=== PATIENT | female | born 1935 | race Caucasian/White ===

== ENCOUNTER 2018-04-16 21:21 | Inpatient (IN) ==
[2018-04-16 22:01] LABS: Basophils % 0.2 % (0.0-0.8); Eosinophils % 0.2 % (0.00-10.9); Hematocrit 37.5 VOL% (35.7-47.0); Hemoglobin 12.3 GM/DL (12.0-16.0); Immature Granulocytes % 0.5 %; Immature Granulocytes Absolute 0.06 #; Lymphocytes # 0.9 10*3/uL (1.4-4.0); Lymphocytes % 7.3 % (21.3-54.2); Mean Corpuscular HGB Conc 32.8 GM/DL (32-36); Mean Corpuscular Hemoglobin 30 PG (27-34); Mean Corpuscular Volume 89.9 FL (87-102); Mean Platelet Volume 9.6 FL (9.6-12.0); Monocytes # 1.1 10*3/uL (0.11-0.8); Monocytes % 8.5 % (1.7-12.7); Neutrophils # 10.7 10*3/uL (1.4-7.4); Neutrophils % 83.3 % (38.7-73.9); Platelet Count 305 T/CUMM (130-400); Red Blood Count 4.17 MC/CUMM (3.8-5.5); Red Cell Distribution Width 12.9 % (9.3-17.3); White Blood Count 12.9 T/CUMM (4-12)
[2018-04-16 22:09] LABS: PT Patient Result 10.4 SECS; Partial Thromboplastin Time 28.7 SECS (0-40)
[2018-04-16 22:23] LABS: Albumin 3.9 G/DL (3.4-5.0); Bilirubin,Total 0.4 MG/DL (0.2-1.0); Calcium 9.3 MG/DL (8.5-10.1); Osmolality,Calculated 274.1 MOS/KG (273-304)
[2018-04-17] MEDS ORDERED: ONDANSETRON 4 MG/2 ML VIAL IV PRN (02:58)
[2018-04-17 04:30] LABS: Apearance,Urine CLEAR (Clear); Bilirubin,Urine Negative (Negative); Blood, Urine Negative (Negative); Glucose,Urine (UA) Negative (Negative); Ketones,Urine Negative (Negative); Nitrite,Urine Negative (Negative); Protein,Urine Negative; RBC,Urine 1 /HPF (0-4); Urine Color Straw (Yellow); Urine Urobilinogen < 2.0 EU/DL (0.2-1.0); WBC,Urine 1 /HPF (0-6)
[2018-04-17] MEDS: LEVOTHYROXINE 25 MCG TABLET PO SCH (05:07)
[2018-04-17 05:58] LABS: Basophils % 0.2 % (0.0-0.8); Eosinophils % 0.1 % (0.00-10.9); Hematocrit 34.2 VOL% (35.7-47.0); Hemoglobin 11.4 GM/DL (12.0-16.0); Immature Granulocytes % 0.3 %; Immature Granulocytes Absolute 0.03 #; Lymphocytes % 8.1 % (21.3-54.2); Mean Corpuscular HGB Conc 33.3 GM/DL (32-36); Mean Corpuscular Hemoglobin 30 PG (27-34); Mean Corpuscular Volume 88.8 FL (87-102); Mean Platelet Volume 9.7 FL (9.6-12.0); Monocytes % 8.9 % (1.7-12.7); Neutrophils # 9.6 10*3/uL (1.4-7.4); Neutrophils % 82.4 % (38.7-73.9); Platelet Count 284 T/CUMM (130-400); Red Blood Count 3.85 MC/CUMM (3.8-5.5); Red Cell Distribution Width 12.9 % (9.3-17.3); White Blood Count 11.7 T/CUMM (4-12)
[2018-04-17 06:40] LABS: Calcium 9.1 MG/DL (8.5-10.1); Potassium 3.7 MMOL/L (3.5-5.1); Thyroid Stimulating Hormone 5.92 uIU/ml (0.358-3.74)
[2018-04-17] MEDS ORDERED: ceFAZolin 1,000 MG in SYRINGE 1 EACH IV ONE (07:28)
[2018-04-17] MEDS: BENAZEPRIL 10 MG TABLET PO SCH (08:26)
[2018-04-17] MEDS: MULTIVITAMIN (CENTRUM) TABLET PO SCH (09:19)
[2018-04-17] MEDS: FERROUS SULFATE 325 MG TABLET PO SCH ×3 (09:19→17:18)
[2018-04-17] MEDS: FUROSEMIDE 20 MG TABLET PO SCH ×2 (09:19→21:02)
[2018-04-17] MEDS: GABAPENTIN 100 MG CAPSULE PO SCH ×3 (09:19→21:02)
[2018-04-17] MEDS ORDERED: BACITRACIN OINT 0.9 GM PACK TOP ONE (10:34)
[2018-04-17] MEDS ORDERED: ROPIVACAINE 0.5% 30 ML VIAL ONE (10:40)
[2018-04-17] MEDS ORDERED: BUPIVACAINE SPINAL 0.75% 2 ML AMP SPINAL ONE (10:43)
[2018-04-17] MEDS ORDERED: fentaNYL 100 MCG/2 ML VIAL ONE (10:43)
[2018-04-17] MEDS ORDERED: MIDAZOLAM 2 MG/2 ML VIAL ONE (10:44)
[2018-04-17] MEDS ORDERED: ETOMIDATE 40 MG/20 ML VIAL IV ONE (10:44)
[2018-04-17] MEDS ORDERED: MAGNESIUM HYDROXIDE SUSP 30 ML UDCUP PO PRN (11:17)
[2018-04-17] MEDS ORDERED: oxyCODONE IR 5 MG TABLET PO PRN (11:17)
[2018-04-17] MEDS ORDERED: PHENYLEPHRINE 1 MG/10 ML SYRINGE IV ONE (12:13)
[2018-04-17] MEDS: clonazePAM 0.5 MG TABLET PO SCH ×2 (13:57→21:02)
[2018-04-17] MEDS: MEMANTINE 5 MG TABLET PO SCH (13:57)
[2018-04-17] MEDS: LACTATED RINGERS 1,000 ML IV SCH ×2 (14:30→14:33)
[2018-04-17] MEDS: ACETAMINOPHEN 500 MG TABLET PO SCH ×2 (17:44→21:03)
[2018-04-17] MEDS: DONEPEZIL 10 MG TABLET PO SCH (21:02)
[2018-04-17] MEDS: FONDAPARINUX 2.5 MG/0.5 ML SYRINGE SUBCUT SCH (21:02)
[2018-04-17] MEDS: AMITRIPTYLINE 25 MG TABLET PO SCH (21:02)
[2018-04-17] MEDS: DOCUSATE SODIUM 100 MG CAPSULE PO SCH (21:02)
[2018-04-17] MEDS: PRAVASTATIN 20 MG TABLET PO SCH (21:02)
[2018-04-17] MEDS: SERTRALINE 50 MG TABLET PO SCH (21:03)
[2018-04-18] MEDS: MORPHINE 4 MG/1 ML VIAL IV PRN ×2 (01:41→23:37)
[2018-04-18] MEDS: LACTATED RINGERS 1,000 ML IV SCH ×2 (01:47→14:20)
[2018-04-18] MEDS: LEVOTHYROXINE 25 MCG TABLET PO SCH (05:09)
[2018-04-18] MEDS: ACETAMINOPHEN 500 MG TABLET PO SCH ×2 (05:09→12:29)
[2018-04-18 06:27] LABS: Basophils % 0.2 % (0.0-0.8); Eosinophils % 0.4 % (0.00-10.9); Hematocrit 31.1 VOL% (35.7-47.0); Hemoglobin 10.6 GM/DL (12.0-16.0); Immature Granulocytes % 0.4 %; Immature Granulocytes Absolute 0.04 #; Lymphocytes # 0.8 10*3/uL (1.4-4.0); Lymphocytes % 7.2 % (21.3-54.2); Mean Corpuscular HGB Conc 34.1 GM/DL (32-36); Mean Corpuscular Hemoglobin 30 PG (27-34); Mean Corpuscular Volume 88.4 FL (87-102); Mean Platelet Volume 9.6 FL (9.6-12.0); Monocytes # 1.2 10*3/uL (0.11-0.8); Monocytes % 11.2 % (1.7-12.7); Neutrophils # 8.5 10*3/uL (1.4-7.4); Neutrophils % 80.6 % (38.7-73.9); Platelet Count 241 T/CUMM (130-400); Red Blood Count 3.52 MC/CUMM (3.8-5.5); Red Cell Distribution Width 13.4 % (9.3-17.3); White Blood Count 10.6 T/CUMM (4-12)
[2018-04-18 06:44] LABS: Calcium 8.1 MG/DL (8.5-10.1); Osmolality,Calculated 279.4 MOS/KG (273-304); Potassium 3.6 MMOL/L (3.5-5.1)
[2018-04-18] MEDS: GABAPENTIN 100 MG CAPSULE PO SCH ×3 (08:47→21:48)
[2018-04-18] MEDS: BENAZEPRIL 10 MG TABLET PO SCH (08:47)
[2018-04-18] MEDS: FERROUS SULFATE 325 MG TABLET PO SCH ×3 (08:47→18:38)
[2018-04-18] MEDS: MULTIVITAMIN (CENTRUM) TABLET PO SCH (08:47)
[2018-04-18] MEDS ORDERED: ACETAMINOPHEN 325 MG TABLET PO PRN (11:18)
[2018-04-18] MEDS ORDERED: ACETAMINOPHEN 500 MG TABLET PO SCH (12:00)
[2018-04-18] MEDS: clonazePAM 0.5 MG TABLET PO SCH ×2 (12:30→21:47)
[2018-04-18] MEDS: MEMANTINE 5 MG TABLET PO SCH (12:30)
[2018-04-18] MEDS: DOCUSATE SODIUM 100 MG CAPSULE PO SCH (21:47)
[2018-04-18] MEDS: PRAVASTATIN 20 MG TABLET PO SCH (21:48)
[2018-04-18] MEDS: SERTRALINE 50 MG TABLET PO SCH (21:48)
[2018-04-18] MEDS: FONDAPARINUX 2.5 MG/0.5 ML SYRINGE SUBCUT SCH (21:48)
[2018-04-18] MEDS: DONEPEZIL 10 MG TABLET PO SCH (21:48)
[2018-04-18] MEDS: AMITRIPTYLINE 25 MG TABLET PO SCH (21:48)
[2018-04-19] MEDS: LACTATED RINGERS 1,000 ML IV SCH (05:32)
[2018-04-19] MEDS: LEVOTHYROXINE 25 MCG TABLET PO SCH (05:33)
[2018-04-19 06:20] LABS: Basophils % 0.2 % (0.0-0.8); Eosinophils # 0.2 10*3/uL (0.0-0.87); Eosinophils % 1.6 % (0.00-10.9); Hemoglobin 9.7 GM/DL (12.0-16.0); Immature Granulocytes % 0.2 %; Immature Granulocytes Absolute 0.02 #; Lymphocytes # 1.6 10*3/uL (1.4-4.0); Lymphocytes % 17.3 % (21.3-54.2); Mean Corpuscular HGB Conc 32.3 GM/DL (32-36); Mean Corpuscular Hemoglobin 30 PG (27-34); Mean Corpuscular Volume 91.7 FL (87-102); Mean Platelet Volume 10.1 FL (9.6-12.0); Monocytes # 1.1 10*3/uL (0.11-0.8); Monocytes % 11.9 % (1.7-12.7); Neutrophils # 6.3 10*3/uL (1.4-7.4); Neutrophils % 68.8 % (38.7-73.9); Platelet Count 239 T/CUMM (130-400); Red Blood Count 3.27 MC/CUMM (3.8-5.5); Red Cell Distribution Width 13.1 % (9.3-17.3); White Blood Count 9.2 T/CUMM (4-12)
[2018-04-19] MEDS: GABAPENTIN 100 MG CAPSULE PO SCH ×3 (09:27→21:22)
[2018-04-19] MEDS: FUROSEMIDE 20 MG TABLET PO SCH ×2 (09:27→21:22)
[2018-04-19] MEDS: BENAZEPRIL 10 MG TABLET PO SCH (09:27)
[2018-04-19] MEDS: MULTIVITAMIN (CENTRUM) TABLET PO SCH (09:37)
[2018-04-19] MEDS: FERROUS SULFATE 325 MG TABLET PO SCH ×3 (09:38→17:30)
[2018-04-19] MEDS: clonazePAM 0.5 MG TABLET PO SCH ×2 (12:08→21:22)
[2018-04-19] MEDS: MEMANTINE 5 MG TABLET PO SCH (12:08)
[2018-04-19] MEDS: FONDAPARINUX 2.5 MG/0.5 ML SYRINGE SUBCUT SCH (21:22)
[2018-04-19] MEDS: DONEPEZIL 10 MG TABLET PO SCH (21:22)
[2018-04-19] MEDS: AMITRIPTYLINE 25 MG TABLET PO SCH (21:23)
[2018-04-19] MEDS: SERTRALINE 50 MG TABLET PO SCH (21:23)
[2018-04-19] MEDS: PRAVASTATIN 20 MG TABLET PO SCH (21:23)
[2018-04-19] MEDS: DOCUSATE SODIUM 100 MG CAPSULE PO SCH (21:32)
[2018-04-19] MEDS: MORPHINE 4 MG/1 ML VIAL IV PRN (21:39)
[2018-04-20] MEDS: LEVOTHYROXINE 25 MCG TABLET PO SCH (07:18)
[2018-04-20] MEDS: FERROUS SULFATE 325 MG TABLET PO SCH ×3 (10:36→19:00)
[2018-04-20] MEDS: BENAZEPRIL 10 MG TABLET PO SCH (10:36)
[2018-04-20] MEDS: MULTIVITAMIN (CENTRUM) TABLET PO SCH (10:36)
[2018-04-20] MEDS: GABAPENTIN 100 MG CAPSULE PO SCH ×3 (10:37→20:55)
[2018-04-20] MEDS: amLODIPine 2.5 MG TABLET PO SCH (10:37)
[2018-04-20] MEDS: MEMANTINE 5 MG TABLET PO SCH (12:42)
[2018-04-20] MEDS: clonazePAM 0.5 MG TABLET PO SCH ×2 (12:42→20:55)
[2018-04-20] MEDS: AMITRIPTYLINE 25 MG TABLET PO SCH (20:55)
[2018-04-20] MEDS: DOCUSATE SODIUM 100 MG CAPSULE PO SCH (20:55)
[2018-04-20] MEDS: DONEPEZIL 10 MG TABLET PO SCH (20:55)
[2018-04-20] MEDS: SERTRALINE 50 MG TABLET PO SCH (20:55)
[2018-04-20] MEDS: PRAVASTATIN 20 MG TABLET PO SCH (21:13)
[2018-04-21] MEDS: FONDAPARINUX 2.5 MG/0.5 ML SYRINGE SUBCUT SCH (03:49)
[2018-04-21] MEDS: LEVOTHYROXINE 25 MCG TABLET PO SCH (06:32)
[2018-04-21 06:53] LABS: Basophils % 0.2 % (0.0-0.8); Eosinophils # 0.1 10*3/uL (0.0-0.87); Eosinophils % 0.9 % (0.00-10.9); Hematocrit 31.2 VOL% (35.7-47.0); Hemoglobin 10.6 GM/DL (12.0-16.0); Immature Granulocytes % 0.3 %; Immature Granulocytes Absolute 0.03 #; Lymphocytes # 1.1 10*3/uL (1.4-4.0); Lymphocytes % 11.3 % (21.3-54.2); Mean Corpuscular Hemoglobin 30 PG (27-34); Mean Corpuscular Volume 88.4 FL (87-102); Mean Platelet Volume 9.5 FL (9.6-12.0); Monocytes # 1.2 10*3/uL (0.11-0.8); Monocytes % 12.2 % (1.7-12.7); Neutrophils # 7.4 10*3/uL (1.4-7.4); Neutrophils % 75.1 % (38.7-73.9); Platelet Count 289 T/CUMM (130-400); Red Blood Count 3.53 MC/CUMM (3.8-5.5); Red Cell Distribution Width 12.7 % (9.3-17.3); White Blood Count 9.8 T/CUMM (4-12)
[2018-04-21 07:17] LABS: Calcium 8.5 MG/DL (8.5-10.1); Osmolality,Calculated 268.2 MOS/KG (273-304); Potassium 3.7 MMOL/L (3.5-5.1)
[2018-04-21] MEDS: MULTIVITAMIN (CENTRUM) TABLET PO SCH (09:10)
[2018-04-21] MEDS: FERROUS SULFATE 325 MG TABLET PO SCH ×2 (09:10→13:10)
[2018-04-21] MEDS: BENAZEPRIL 10 MG TABLET PO SCH (09:10)
[2018-04-21] MEDS: FUROSEMIDE 20 MG TABLET PO SCH (09:10)
[2018-04-21] MEDS: amLODIPine 2.5 MG TABLET PO SCH (09:11)
[2018-04-21] MEDS: GABAPENTIN 100 MG CAPSULE PO SCH ×2 (09:11→13:11)
[2018-04-21 11:54] VITALS: BP 173/100
[2018-04-21] MEDS: MEMANTINE 5 MG TABLET PO SCH (13:10)
[2018-04-21] MEDS: clonazePAM 0.5 MG TABLET PO SCH (13:10)
== END 2018-04-21 14:20 | DRG 481 ==
LOC: EDUNIT# → EDBD → N.ED 21:21 → N.EDINP 04-17 00:08 → N.3E 04-17 01:27

== ENCOUNTER 2019-09-09 17:59 | Inpatient (IN) ==
[2019-09-09] MEDS ORDERED: LIDOCAINE 1% 20 ML VIAL INFILTRAT STA (18:47)
[2019-09-09] MEDS ORDERED: MORPHINE 4 MG/1 ML VIAL IV STA (19:45)
[2019-09-09] MEDS ORDERED: ONDANSETRON 4 MG/2 ML VIAL IV STA (19:45)
[2019-09-09] MEDS ORDERED: ONDANSETRON 4 MG/2 ML VIAL ONE (19:48)
[2019-09-09] MEDS ORDERED: MORPHINE 4 MG/1 ML VIAL ONE (19:49)
[2019-09-09 19:52] LABS: Basophils % 0.2 % (0.0-0.8); Eosinophils # 0.1 10*3/uL (0.0-0.87); Eosinophils % 0.4 % (0.00-10.9); Hematocrit 35.2 VOL% (35.7-47.0); Hemoglobin 11.3 GM/DL (12.0-16.0); Immature Granulocytes % 0.7 %; Immature Granulocytes Absolute 0.09 #; Lymphocytes # 0.7 10*3/uL (1.4-4.0); Lymphocytes % 5.4 % (21.3-54.2); Mean Corpuscular HGB Conc 32.1 GM/DL (32-36); Mean Platelet Volume 10.1 FL (9.6-12.0); Monocytes % 6.1 % (1.7-12.7); Neutrophils % 87.2 % (38.7-73.9); Platelet Count 176 T/CUMM (130-400); Red Blood Count 3.91 MC/CUMM (3.8-5.5); Red Cell Distribution Width 12.9 % (9.3-17.3); White Blood Count 13.6 T/CUMM (4-12)
[2019-09-09 20:10] LABS: Alanine Aminotransferase 33 U/L (13-56); Albumin 3.2 G/DL (3.4-5.0); Alkaline Phosphatase 117 U/L (45-117); Aspartate Amino Transferase 25 U/L (0-37); Bilirubin,Total < 0.39 MG/DL (0.2-1.0); Blood Urea Nitrogen 26 MG/DL (7-18); Calcium 8.8 MG/DL (8.5-10.1); Estimated Glom Filtration Rate 57 ML/MIN; Glucose 140 MG/DL (74-106); Total Protein 7.1 G/DL (6.4-8.3)
[2019-09-09 20:11] LABS: INR 1.3; Partial Thromboplastin Time 30.1 SECS (20.8-36.0)
[2019-09-09 20:16] LABS: Platelet Estimate Normal
[2019-09-09] MEDS ORDERED: ONDANSETRON 4 MG/2 ML VIAL IV PRN (20:36)
[2019-09-09] MEDS ORDERED: guaiFENesin/DM ER 600-30 MG TABLET PO PRN (20:36)
[2019-09-09] MEDS ORDERED: ALBUTEROL 2.5 MG/3 ML NEB RESP TX PRN (20:41)
[2019-09-09] MEDS ORDERED: hydrALAZINE 20 MG/1 ML VIAL IV PRN (20:41)
[2019-09-09] MEDS: MORPHINE 4 MG/1 ML VIAL IV PRN (23:44)
[2019-09-09] MEDS: DEXTROSE 5% NACL 0.9% 1,000 ML IV SCH (23:45)
[2019-09-10 04:01] LABS: Apearance,Urine CLEAR (Clear); Bacteria,Urine Occasional /HPF (Few); Bilirubin,Urine Negative (Negative); Blood, Urine Negative (Negative); Glucose,Urine (UA) Negative (Negative); Ketones,Urine 5 mg/dL (Negative); Mucus,Urine Occasional /LPF (Occasional); Nitrite,Urine Negative (Negative); Protein,Urine Negative; RBC,Urine 3 /HPF (0-4); Squamous Epithelial Cell,Urine Occasional /HPF (0-10); Urine Color Yellow (Yellow); Urine Specific Gravity 1.021 (1.001-1.035); Urine Urobilinogen < 2.0 EU/DL (0.2-1.0); WBC,Urine 1 /HPF (0-6)
[2019-09-10 06:37] LABS: Basophils % 0.2 % (0.0-0.8); Hematocrit 31.1 VOL% (35.7-47.0); Immature Granulocytes % 0.5 %; Immature Granulocytes Absolute 0.06 #; Lymphocytes # 0.8 10*3/uL (1.4-4.0); Lymphocytes % 6.1 % (21.3-54.2); Mean Corpuscular HGB Conc 32.2 GM/DL (32-36); Mean Corpuscular Volume 88.6 FL (87-102); Mean Platelet Volume 10.6 FL (9.6-12.0); Monocytes % 7.7 % (1.7-12.7); Neutrophils % 85.5 % (38.7-73.9); Platelet Count 216 T/CUMM (130-400); Red Blood Count 3.51 MC/CUMM (3.8-5.5)
[2019-09-10 07:00] LABS: Calcium 8.7 MG/DL (8.5-10.1); Osmolality,Calculated 278.8 MOS/KG (273-304)
[2019-09-10] MEDS: LEVOTHYROXINE 75 MCG TABLET PO SCH (07:43)
[2019-09-10] MEDS: VANCOMYCIN INJ 1,000 MG in SODIUM CHLORIDE 0.9% 250 ML IV SCH (08:35)
[2019-09-10] MEDS ORDERED: VANCOMYCIN 1,000 MG VIAL ONE (08:39)
[2019-09-10] MEDS ORDERED: ceFAZolin 1,000 MG VIAL ONE (08:39)
[2019-09-10] MEDS ORDERED: BUPIVACAINE 0.5% 50 ML VIAL ONE (10:00)
[2019-09-10] MEDS ORDERED: LIDOCAINE 2% 5 ML VIAL ONE (10:33)
[2019-09-10] MEDS ORDERED: SEVOFLURANE 1 UNIT/15 MINUTE INH ONE (10:33)
[2019-09-10] MEDS ORDERED: propofoL 200 MG/20 ML VIAL IV ONE (10:33)
[2019-09-10] MEDS ORDERED: fentaNYL 100 MCG/2 ML VIAL ONE (10:34)
[2019-09-10] MEDS ORDERED: SODIUM CHLORIDE 0.9% 100 ML IV ONE (10:34)
[2019-09-10] MEDS: PANTOPRAZOLE 40 MG VIAL IV SCH (11:53)
[2019-09-10] MEDS: ENOXAPARIN 40 MG/0.4 ML SYRINGE SUBCUT SCH (11:55)
[2019-09-10] MEDS: FLUTICASONE 50 MCG NASAL SPRAY 16 GM BOTTLE BOTH NARES SCH (11:55)
[2019-09-10] MEDS: amLODIPine 5 MG TABLET PO SCH (11:55)
[2019-09-10] MEDS: MORPHINE 4 MG/1 ML VIAL IV PRN (17:17)
[2019-09-10] MEDS: DEXTROSE 5% NACL 0.9% 1,000 ML IV SCH (17:22)
[2019-09-10] MEDS: DOCUSATE SODIUM 100 MG CAPSULE PO SCH (20:35)
[2019-09-11] MEDS: DEXTROSE 5% NACL 0.9% 1,000 ML IV SCH (07:08)
[2019-09-11 07:11] LABS: Basophils % 0.1 % (0.0-0.8); Hematocrit 25.9 VOL% (35.7-47.0); Hemoglobin 8.3 GM/DL (12.0-16.0); Immature Granulocytes % 0.5 %; Immature Granulocytes Absolute 0.05 #; Lymphocytes # 0.9 10*3/uL (1.4-4.0); Lymphocytes % 9.1 % (21.3-54.2); Mean Corpuscular Volume 89.6 FL (87-102); Mean Platelet Volume 10.4 FL (9.6-12.0); Monocytes % 13.6 % (1.7-12.7); Neutrophils % 76.7 % (38.7-73.9); Platelet Count 150 T/CUMM (130-400); Red Blood Count 2.89 MC/CUMM (3.8-5.5); Red Cell Distribution Width 13.1 % (9.3-17.3); White Blood Count 9.5 T/CUMM (4-12)
[2019-09-11 07:35] LABS: Calcium 7.7 MG/DL (8.5-10.1); Osmolality,Calculated 291.7 MOS/KG (273-304); Thyroid Stimulating Hormone 1.43 uIU/ml (0.358-3.74)
[2019-09-11] MEDS: amLODIPine 5 MG TABLET PO SCH (08:15)
[2019-09-11] MEDS: LEVOTHYROXINE 75 MCG TABLET PO SCH (08:15)
[2019-09-11] MEDS: ENOXAPARIN 40 MG/0.4 ML SYRINGE SUBCUT SCH (08:15)
[2019-09-11] MEDS: VANCOMYCIN INJ 1,000 MG in SODIUM CHLORIDE 0.9% 250 ML IV SCH (08:16)
[2019-09-11] MEDS: PANTOPRAZOLE 40 MG VIAL IV SCH (08:16)
[2019-09-11] MEDS: FLUTICASONE 50 MCG NASAL SPRAY 16 GM BOTTLE BOTH NARES SCH (08:21)
[2019-09-11] MEDS: MORPHINE 4 MG/1 ML VIAL IV PRN ×2 (13:54→20:51)
[2019-09-11] MEDS: DOCUSATE SODIUM 100 MG CAPSULE PO SCH (20:51)
[2019-09-12 05:11] LABS: Basophils % 0.2 % (0.0-0.8); Eosinophils # 0.1 10*3/uL (0.0-0.87); Eosinophils % 0.5 % (0.00-10.9); Hematocrit 23.4 VOL% (35.7-47.0); Hemoglobin 7.5 GM/DL (12.0-16.0); Immature Granulocytes % 0.5 %; Immature Granulocytes Absolute 0.05 #; Lymphocytes # 1.3 10*3/uL (1.4-4.0); Lymphocytes % 14.2 % (21.3-54.2); Mean Corpuscular HGB Conc 32.1 GM/DL (32-36); Mean Corpuscular Volume 89.7 FL (87-102); Mean Platelet Volume 10.4 FL (9.6-12.0); Monocytes % 13.1 % (1.7-12.7); Neutrophils % 71.5 % (38.7-73.9); Platelet Count 140 T/CUMM (130-400); Red Blood Count 2.61 MC/CUMM (3.8-5.5); Red Cell Distribution Width 13.1 % (9.3-17.3); White Blood Count 9.3 T/CUMM (4-12)
[2019-09-12 05:37] LABS: Calcium 7.7 MG/DL (8.5-10.1); Osmolality,Calculated 280.4 MOS/KG (273-304)
[2019-09-12] MEDS: LEVOTHYROXINE 75 MCG TABLET PO SCH (05:43)
[2019-09-12] MEDS: FLUTICASONE 50 MCG NASAL SPRAY 16 GM BOTTLE BOTH NARES SCH (08:29)
[2019-09-12] MEDS: ENOXAPARIN 40 MG/0.4 ML SYRINGE SUBCUT SCH (08:30)
[2019-09-12] MEDS: PANTOPRAZOLE 40 MG VIAL IV SCH (08:30)
[2019-09-12] MEDS: VANCOMYCIN INJ 1,000 MG in SODIUM CHLORIDE 0.9% 250 ML IV SCH (08:45)
[2019-09-12] MEDS ORDERED: POLYETHYLENE GLYCOL POWDER 17 GM PACK PO SCH (09:00)
[2019-09-12] MEDS ORDERED: SODIUM CHLORIDE 0.9% 1,000 ML IV PRN (09:15)
[2019-09-12] MEDS: amLODIPine 5 MG TABLET PO SCH (09:40)
[2019-09-12] MEDS ORDERED: traMADol 50 MG TABLET PO ONE (16:53)
[2019-09-12 18:46] VITALS: BP 134/61
== END 2019-09-12 19:16 | DRG 481 ==
LOC: EDUNIT# → EDBD → N.ED 17:59 → SUATTDRO 20:36 → N.EDINP 20:36 → N.3E 20:59
PROVIDERS: ADMIT Internal Medicine; ATTEND Family Medicine

== ENCOUNTER 2022-10-16 10:57 | Observation (INO) ==
[2022-10-16 12:37] LABS: Basophils # 0.1 10*3/uL (0.0-0.2); Basophils % 0.2 % (0.0-0.8); Hematocrit 36.7 VOL% (35.7-47.0); Hemoglobin 11.2 GM/DL (12.0-16.0); Immature Granulocytes % 0.6 %; Immature Granulocytes Absolute 0.15 #; Lymphocytes # 0.8 10*3/uL (1.4-4.0); Lymphocytes % 3.4 % (21.3-54.2); Mean Corpuscular HGB Conc 30.5 GM/DL (32-36); Mean Corpuscular Volume 84.2 FL (87-102); Mean Platelet Volume 10.1 FL (9.6-12.0); Monocytes # 1.4 10*3/uL (0.11-0.8); Monocytes % 5.8 % (1.7-12.7); Platelet Count 476 T/CUMM (130-400); Red Blood Count 4.36 MC/CUMM (3.8-5.5); White Blood Count 23.78 T/CUMM (4-12)
[2022-10-16 13:01] LABS: Alanine Aminotransferase 13 U/L (13-56); Albumin 3.1 G/DL (3.4-5.0); Alkaline Phosphatase 121 U/L (45-117); Aspartate Amino Transferase 12 U/L (0-37); Blood Urea Nitrogen 16 MG/DL (7-18); Calcium 9.3 MG/DL (8.5-10.1); Carbon Dioxide 24 MMOL/L (21-32); Chloride 105 MMOL/L (98-107); Glucose 143 MG/DL (74-106); Osmolality,Calculated 277.7 MOS/KG (273-304); Potassium 4.5 MMOL/L (3.5-5.1); Sodium 138 MMOL/L (136-145)
[2022-10-16 13:02] LABS: Anisocytosis Slight; Band Neutrophils 10 % (0-10); Lymphocytes 2 % (20-55); Platelet Estimate Normal; Total Cells Counted 100
[2022-10-16 13:54] LABS: Bilirubin,Urine Negative (Negative); Blood, Urine Moderate mg/dL (Negative); Glucose,Urine (UA) Negative (Negative); Ketones,Urine Negative (Negative); Nitrite,Urine Positive (Negative); Protein,Urine 30 mg/dL (Negative); Urine Appearance Slightly Cloudy (Clear); Urine Color Yellow (Yellow); Urine Specific Gravity >= 1.030 (1.001-1.035); Urine Urobilinogen 0.2 eU/dL (<2.0); Urine pH 5.5 (4.5-8.0)
[2022-10-16 13:58] LABS: Bacteria,Urine Moderate /HPF (Few); Mucus,Urine Many /LPF (Occasional); RBC,Urine 58 /HPF (0-4)
[2022-10-16] MEDS ORDERED: ONDANSETRON 4 MG/2 ML VIAL IV PRN (14:36)
[2022-10-16] MEDS ORDERED: cefTRIAXone 2,000 MG in SODIUM CHLORIDE 0.9% 100 ML IV SCH (14:44)
[2022-10-16] MEDS ORDERED: ENOXAPARIN 30 MG/0.3 ML SYRINGE SUBCUT SCH (15:00)
[2022-10-16] MEDS ORDERED: FUROSEMIDE 40 MG/4 ML VIAL IV ONE ×2 (15:00→17:04)
[2022-10-16] MEDS: CEFEPIME 1,000 MG in SODIUM CHLORIDE 0.9% 100 ML IV SCH (17:56)
[2022-10-17] MEDS: CEFEPIME 1,000 MG in SODIUM CHLORIDE 0.9% 100 ML IV SCH ×3 (01:24→11:18)
[2022-10-17 05:47] LABS: Basophils % 0.2 % (0.0-0.8); Hemoglobin 10.9 GM/DL (12.0-16.0); Immature Granulocytes % 0.5 %; Immature Granulocytes Absolute 0.12 #; Lymphocytes # 1.5 10*3/uL (1.4-4.0); Lymphocytes % 6.6 % (21.3-54.2); Mean Corpuscular HGB Conc 32.1 GM/DL (32-36); Mean Corpuscular Volume 81.9 FL (87-102); Mean Platelet Volume 10.6 FL (9.6-12.0); Monocytes # 1.7 10*3/uL (0.11-0.8); Monocytes % 7.7 % (1.7-12.7); Platelet Count 445 T/CUMM (130-400); Red Blood Count 4.15 MC/CUMM (3.8-5.5); Red Cell Distribution Width 14.9 % (9.3-17.3); White Blood Count 21.98 T/CUMM (4-12)
[2022-10-17 06:09] LABS: Band Neutrophils 1 % (0-10); Lymphocytes 6 % (20-55); Total Cells Counted 100
[2022-10-17 06:10] LABS: Hypochromia Slight; Microcytosis Slight; Platelet Estimate Adequate
[2022-10-17 06:15] LABS: Alanine Aminotransferase 13 U/L (13-56); Albumin 2.8 G/DL (3.4-5.0); Alkaline Phosphatase 115 U/L (45-117); Aspartate Amino Transferase 15 U/L (0-37); Bilirubin,Total < 0.39 MG/DL (0.20-1.00); Blood Urea Nitrogen 24 MG/DL (7-18); Carbon Dioxide 23 MMOL/L (21-32); Chloride 105 MMOL/L (98-107); Glucose 113 MG/DL (74-106); Osmolality,Calculated 283.4 MOS/KG (273-304); Potassium 3.7 MMOL/L (3.5-5.1); Sodium 140 MMOL/L (136-145); Total Protein 7.4 G/DL (6.4-8.2)
[2022-10-17] MEDS ORDERED: FLUTICASONE 50 MCG NASAL SPRAY 16 GM BOTTLE BOTH NARES SCH (09:00)
[2022-10-17] MEDS ORDERED: SODIUM CHLORIDE 0.9% 1,000 ML IV SCH (10:30)
[2022-10-17] MEDS ORDERED: cefTRIAXone 2,000 MG in SODIUM CHLORIDE 0.9% 100 ML IV SCH (12:00)
[2022-10-17 15:37] VITALS: BP 117/91
== END 2022-10-17 15:38 | disposition hospice, inpatient (51) ==
LOC: EDUNIT# → EDBD → N.ED 10:57 → N.EDINP 10:57 → SUATTDRO 14:36 → N.2W 15:52
PROVIDERS: ADMIT Emergency Medicine; ATTEND Internal Medicine